=== PATIENT | female | born 1985 | race Two or more races ===

== ENCOUNTER 2024-03-30 03:06 | Emergency (ER) | payer MEDICAID, OTHER ==
[~2024-03-30] VITALS: Ht 160 cm; Wt 78.6 kg
--- NOTE | 2024-03-30 04:26 | DVH ---
CLINICAL INFORMATION: 38 years old, Female; crush injury. TECHNIQUE: 3 views of the right hand were obtained. COMPARISON: None FINDINGS: No acute fracture or dislocation. No significant arthropathy. Soft tissue swelling. IMPRESSION: 1. No evidence of acute bony abnormality.
--- NOTE | 2024-03-30 04:27 | DVH ---
XY L HAND 3V XRAY, INDICATION: crush injury TECHNICAL DATA: Frontal, oblique and lateral views were obtained of the left hand. COMPARISON: None IMPRESSION: There is suspected dislocation of the 5th proximal interphalangeal joint with the middle phalanx post eriorly located in relation to the proximal phalanx. No evidence of discrete fracture. Dedicated imaging of the 5th digit following relocation would be of benefit.
[2024-03-30 04:44] VITALS: TEMP 97.7; O2SAT 98
[2024-03-30] MEDS: MORPHINE SULFATE INJ 2 MG/ml SYRG IV ONE (04:49)
[2024-03-30 05:09] VITALS: BP 141/74; PULSE 75; RESP 17
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
[2024-03-30] MEDS ORDERED: PROCHLORPERAZINE EDISYLATE 5 MG/ML 2ML VIAL IM ONE (06:15)
--- NOTE | 2024-03-30 06:34 | DVH ---
XY L 5TH FINGER XRAY, INDICATION: s/p reduction TECHNICAL DATA: Frontal view of the left hand and lateral and oblique views of the left 5th digit wer e obtained. COMPARISON: XY L HAND 3V XRAY on DOS: 03/30/24 IMPRESSION: There has been interval reduction of previously noted 5th digit dislocation. Alignment is near anatom ic. No evidence of fracture.
[2024-03-30] MEDS ORDERED: IBUP-1456 PO (06:36)
== END 2024-03-30 06:51 | disposition home or self-care (01) ==
LOC: ER 03:06
DX: S63.287A Dislocation of proximal interphalangeal joint of left little finger, initial encounter (principal); S60.221A Contusion of right hand, initial encounter; W23.0XXA Caught, crushed, jammed, or pinched between moving objects, initial encounter; Y93.89 Activity, other specified; Y92.89 Other specified places as the place of occurrence of the external cause; Y99.8 Other external cause status
CPT/HCPCS: 26770; 73130; 73140; 99285; J2270; 28515